=== PATIENT | female | born 1965 | race Caucasian/White ===

== ENCOUNTER 2023-04-16 06:01 | Emergency (ER) | payer BC ==
[~2023-04-16] VITALS: Ht 167.6 cm; Wt 108.9 kg
[2023-04-16 06:20] VITALS: BP_SYST 109; PULSE 78; RESP 18; TEMP 98.4; O2SAT 97
[2023-04-16] MEDS ORDERED: MORPHINE 2 MG/ML INJ. SYRINGE IM ONE (07:00)
[2023-04-16 07:08] LABS: BASOPHILS # (AUTO) 0.1 K/uL (0.0-0.2); BASOPHILS % (AUTO) 0.9 % (0.0-2.0); EOSINOPHILS % (AUTO) 0.1 % (0.0-4.0); HEMATOCRIT 38.2 % (36-48); HEMOGLOBIN 12.5 g/dL (12.0-16.0); LYMPHOCYTES # (AUTO) 1.4 K/uL (1.0-5.5); LYMPHOCYTES % (AUTO) 15.8 % (20.5-51.5); MEAN CORPUSCULAR HEMOGLOBIN 28 pg (27-31); MEAN CORPUSCULAR HGB CONC 33 % (32-36); MEAN CORPUSCULAR VOLUME 86 fL (79.0-98.0); MONOCYTES # (AUTO) 0.4 K/uL (0.0-1.0); MONOCYTES % (AUTO) 4.9 % (1.7-9.3); NEUTROPHILS # (AUTO) 6.9 K/uL (1.8-7.7); NEUTROPHILS % (AUTO) 78.3 % (40.0-70.0); PLATELET COUNT (AUTO) 185 K/uL (130-430); RED BLOOD CELL COUNT(AUTO) 4.43 MIL/uL (4.2-6.2); RED CELL DISTRIBUTION WIDTH 14.2 % (9.0-15.0); WHITE BLOOD COUNT (AUTO) 8.9 K/uL (4.8-10.8)
[2023-04-16 07:16] LABS: ERYTHROCYTE SEDIMENTATION RATE 6 MM/HR (0-20)
[2023-04-16 07:40] LABS: CREATININE 0.59 mg/dL (0.55-1.30); POTASSIUM 4.3 mmol/L (3.5-5.1)
[2023-04-16 07:53] LABS: ALBUMIN 3.7 g/dL (3.4-4.8); TOTAL BILIRUBIN 0.6 mg/dL (0.0-1.0); TOTAL PROTEIN, SERUM 7.2 g/dL (6.4-8.3); URIC ACID 4.2 mg/dL (2.4-7.0)
[2023-04-16 07:58] LABS: INR 1.7 (0.8-1.2); PROTHROMBIN TIME 17.2 SECS (9.5-12.5)
[2023-04-16] MEDS ORDERED: IBUP-1969 PO (08:20)
[2023-04-16] MEDS ORDERED: ACET-2634 PO (08:20)
[2023-04-16 08:30] VITALS: BP_SYST 127; PULSE 71; RESP 18; TEMP 97.9; O2SAT 96
== END 2023-04-16 08:32 | disposition home or self-care (01) ==
LOC: SED 06:01
DX: R25.2 Cramp and spasm (principal); M25.551 Pain in right hip; M54.50 Low back pain, unspecified; I10 Essential (primary) hypertension; Z88.1 Allergy status to other antibiotic agents; Z88.5 Allergy status to narcotic agent; Z85.528 Personal history of other malignant neoplasm of kidney; Z79.899 Other long term (current) drug therapy
CPT/HCPCS: 99285; 93971; 80053; 83735; 84550; 85025; 85610; 85651; 85730; 36415; 73502; 96372; 82397; J2270